=== PATIENT | male | born 1985 | race Caucasian/White ===

== ENCOUNTER 2017-09-09 14:51 | Emergency (ER) | payer SELFPAY ==
[~2017-09-09] VITALS: Ht 182.9 cm; Wt 109.1 kg
[~2017-09-09 14:51] MED LIST: PROM25SU8 PO
[2017-09-09 14:52] VITALS: BP 154/84; PULSE 105; RESP 16; TEMP 99.5; O2SAT 97
[2017-09-09] MEDS ORDERED: SODIUM CHLOR 0.9% 1000 ML INJ 1,000 ML IV SCH (14:57)
[2017-09-09] MEDS ORDERED: SODIUM CHLORIDE 0.9% FLUSH 10 ML FLUSH IV FLUSH PRN (15:00)
[2017-09-09 15:25] VITALS: BP 143/85; PULSE 91; RESP 18; O2SAT 94
--- NOTE | 2017-09-09 15:35 | PD ---
HPI Chief Complaint: Flank/Kidney Pain Time Seen by Provider: 14:57 Travel History International Travel<30 days: No Contact w/Intl Traveler<30days: No Traveled to known affect area: No History of Present Illness HPI Patient is a 32-year-old male who presents to emergency room with complaints of left-sided flank pain. Patient reports that he has history of kidney stones in the past, reports that his kidney stones have required surgery for stone removal. Patient reports that since last night, he has been having left sided flank pain. Reports that the flank pain does radiate to his left groin Reports that pain has been mild to moderate in nature but constant. Denies n/v/d with symptoms. Patient reports that he has been having urinary frequency as well as urgency. Denies discharge. patient with no fever/chills, no other complaints at this time. PFSH Past Medical History ADD: Yes Bipolar Disorder: Yes Cancer: No Cardiovascular Problems: No Diabetes: No Diminished Hearing: No Endocrine: No Genitourinary: No Immune Disorder: No Kidney Stones: Yes Musculoskeletal: No Neurologic: No Psychiatric: No Reproductive: No Respiratory: No Integumentary: Yes (LACERATION WITH SUTURES TO LEFT HAND.) Immunizations Current: Yes Influenza Vaccination: No Past Surgical History Genitourinary Surgery: Yes (KIDNEY STONE REMOVAL) Other Surgery: No Social History Alcohol Use: No (USED TO DRINK) Tobacco Use: No Substance Use: No Allergies-Medications (Allergen,Severity, Reaction): Coded Allergies: codeine (Unverified Allergy, Severe, Hives, 09/09/17) Reported Meds & Prescriptions Reported Meds & Active Scripts Active No Active Prescriptions or Reported Medications Review of Systems General / Constitutional: No: Fever, Chills Eyes: No: Visual changes HENT: No: Headaches Cardiovascular: No: Chest Pain or Discomfort Respiratory: No: Shortness of Breath Gastrointestinal: No: Abdominal Pain Genitourinary: Positive: Frequency, Flank Pain, No: Dysuria, Nocturia, Hematuria, Hesitancy Musculoskeletal: No: Pain Skin: No Rash Neurologic: No: Weakness Psychiatric: No: Depression Endocrine: No: Polydipsia Hematologic/Lymphatic: No: Easy Bruising Physical Exam Narrative GENERAL: moderate distress SKIN: Focused skin assessment warm/dry. HEAD: Atraumatic. Normocephalic. EYES: Pupils equal and round. No scleral icterus. No injection or drainage. ENT: No nasal bleeding or discharge. Mucous membranes pink and moist. NECK: Trachea midline. No JVD. CARDIOVASCULAR: Regular rate and rhythm. No murmur appreciated. RESPIRATORY: No accessory muscle use. Clear to auscultation. Breath sounds equal bilaterally. GASTROINTESTINAL: Abdomen soft, non-tender, nondistended. Hepatic and splenic margins not palpable. MUSCULOSKELETAL: No obvious deformities. No clubbing. No cyanosis. No edema. Patient with left sided flank pain on exam NEUROLOGICAL: Awake and alert. No obvious cranial nerve deficits. Motor grossly within normal limits. Normal speech. PSYCHIATRIC: Appropriate mood and affect; insight and judgment normal. Data Data Last Documented VS Vital Signs Date Time Temp Pulse Resp B/P (MAP) Pulse Ox O2 Delivery O2 Flow Rate FiO2 09/09/17 15:25 91 18 143/85 (104) 94 Room Air 09/09/17 14:52 99.5 Orders Orders Complete Blood Count With Diff (09/09/17 14:57) Comprehensive Metabolic Panel (09/09/17 14:57) Lipase (09/09/17 14:57) Prothrombin Time / Inr (Pt) (09/09/17 14:57) Act Partial Throm Time (Ptt) (09/09/17 14:57) Urinalysis - C+S If Indicated (09/09/17 14:57) Iv Access Insert/Monitor (09/09/17 14:57) Ecg Monitoring (09/09/17 14:57) Oximetry (09/09/17 14:57) NPO (09/09/17 14:57) Sodium Chlor 0.9% 1000 Ml Inj (Ns 1000 M (09/09/17 14:57) Sodium Chloride 0.9% Flush (Ns Flush) (09/09/17 15:00) Ct Abd/Pel W/O Iv Contrast (09/09/17 15:19) Morphine Inj (Morphine Inj) (09/09/17 15:45) Ondansetron Inj (Zofran Inj) (09/09/17 15:45) ^ Straight Catheter (09/09/17 16:15) Labs Laboratory Tests Test 09/09/17 15:20 White Blood Count 10.7 TH/MM3 Red Blood Count 5.26 MIL/MM3 Hemoglobin 16.4 GM/DL Hematocrit 46.9 % Mean Corpuscular Volume 89.2 FL Mean Corpuscular Hemoglobin 31.3 PG Mean Corpuscular Hemoglobin Concent 35.1 % Red Cell Distribution Width 13.1 % Platelet Count 226 TH/MM3 Mean Platelet Volume 8.9 FL Neutrophils (%) (Auto) 72.7 % Lymphocytes (%) (Auto) 16.4 % Monocytes (%) (Auto) 6.9 % Eosinophils (%) (Auto) 3.5 % Basophils (%) (Auto) 0.5 % Neutrophils # (Auto) 7.7 TH/MM3 Lymphocytes # (Auto) 1.8 TH/MM3 Monocytes # (Auto) 0.7 TH/MM3 Eosinophils # (Auto) 0.4 TH/MM3 Basophils # (Auto) 0.1 TH/MM3 CBC Comment DIFF FINAL Differential Comment Prothrombin Time 10.2 SEC Prothromb Time International Ratio 1.0 RATIO Activated Partial Thromboplast Time 27.0 SEC Blood Urea Nitrogen 14 MG/DL Creatinine 1.17 MG/DL Random Glucose 93 MG/DL Total Protein 7.5 GM/DL Albumin 3.8 GM/DL Calcium Level 9.2 MG/DL Alkaline Phosphatase 83 U/L Aspartate Amino Transf (AST/SGOT) 42 U/L Alanine Aminotransferase (ALT/SGPT) 52 U/L Total Bilirubin 0.4 MG/DL Sodium Level 138 MEQ/L Potassium Level 3.9 MEQ/L Chloride Level 104 MEQ/L Carbon Dioxide Level 28.1 MEQ/L Anion Gap 6 MEQ/L Estimat Glomerular Filtration Rate 73 ML/MIN Lipase 231 U/L MDM Medical Decision Making Medical Screen Exam Complete: Yes Emergency Medical Condition: Yes Medical Record Reviewed: Yes Interpretation(s) Vital Signs Date Time Temp Pulse Resp B/P (MAP) Pulse Ox O2 Delivery O2 Flow Rate FiO2 09/09/17 15:25 91 18 143/85 (104) 94 Room Air 09/09/17 15:08 18 09/09/17 14:52 99.5 105 16 154/84 (107) 97 Room Air Differential Diagnosis Kidney stones, cystitis, UTI, electrolyte abnormality Narrative Course During the course of the patients emergency department visit, the patients history, examination, and differential diagnosis were reviewed with the patient. The patient was placed on a rv detailer with oximetry and frequent blood pressure monitoring. The patient had a 20-gauge IV access obtained and blood work sent for analysis. The patient was initially provided IVF, IV morphine (patient has tolerated this in the past and does not have an allergy to this), IV zofran The patients laboratory studies were reviewed and remarkable for : CBC & BMP Diagram 09/09/17 15:20 Total Protein 7.5, Albumin 3.8, Calcium Level 9.2, Alkaline Phosphatase 83, Aspartate Amino Transf (AST/SGOT) 42 H, Alanine Aminotransferase (ALT/SGPT) 52, Total Bilirubin 0.4 Radiology studies were reviewed and remarkable for: Last Impressions Abdomen/Pelvis CT 09/09/17 8174 Signed Impressions: Service Date/Time: Saturday, September 09, 2017 15:39 - CONCLUSION: Numerous calcifications throughout the kidneys , left greater than right. No active stones identified. Otherwise unremarkable CT scan of the abdomen and pelvis. Mirza Meza MD Patient with numerous calcifications of the kidneys, left greater than right, cr 1.17 I reviewed all labs and all studies with patient in detail including all incidental findings. Plan to have patient follow up with urologist. Signs and symptoms of when to return to the emergency room was reviewed with patient detail. Diagnosis Primary Impression: Flank pain Additional Impression: Nephrolithiasis Referrals: Luis Miguel Cole MD Patient Instructions: Narcotic given in the ED, General Instructions Additional Instructions: Please provide patient with a copy of their lab work and studies at discharge* * Please follow up with your primary care doctor in 2-3 days Return to the ER if symptoms worsen or progress Return to the ER as needed Please follow-up with a urologist as soon as possible Scripts No Active Prescriptions or Reported Meds Disposition: 01 DISCHARGE HOME Condition: Stable Adele West DO Sep 09, 2017 15:35
[2017-09-09 15:43] LABS: AUTOMATED NEUTROPHIL # 7.7 TH/MM3 (1.8-7.7); BASOPHIL # 0.1 TH/MM3 (0-0.2); BASOPHIL % 0.5 % (0.0-2.0); EOSINOPHIL # 0.4 TH/MM3 (0-0.4); EOSINOPHIL % 3.5 % (0.0-4.0); HEMATOCRIT 46.9 % (39.0-51.0); HEMOGLOBIN 16.4 GM/DL (13.0-17.0); LYMPH % 16.4 % (9.0-44.0); LYMPHOCYTE # 1.8 TH/MM3 (1.0-4.8); MEAN CELL VOLUME 89.2 FL (80.0-100.0); MEAN CORPUSCULAR HEMOGLOBIN 31.3 PG (27.0-34.0); MEAN CORPUSCULAR HGB CONC 35.1 % (32.0-36.0); MEAN PLATELET VOLUME 8.9 FL (7.0-11.0); MONO % 6.9 % (0.0-8.0); MONOCYTE # 0.7 TH/MM3 (0-0.9); NEUT % 72.7 % (16.0-70.0); PLATELET COUNT 226 TH/MM3 (150-450); RED BLOOD COUNT 5.26 MIL/MM3 (4.50-5.90); RED CELL DISTRIBUTION WIDTH 13.1 % (11.6-17.2); WHITE BLOOD COUNT 10.7 TH/MM3 (4.0-11.0)
[2017-09-09] MEDS ORDERED: MORPHINE SULFATE 4 MG/ML INJ IV PUSH ONE (15:45)
[2017-09-09] MEDS ORDERED: ONDANSETRON HCL 4 MG/2 ML VIAL IVP ONE (15:45)
--- NOTE | 2017-09-09 15:51 | RADRPT ---
EXAM DATE/TIME: 09/09/2017 15:39 [facility] COMPARISON: No previous studies available for comparison. INDICATIONS : Left flank pain radiating to left testicle. ORAL CONTRAST: No oral contrast ingested. RADIATION DOSE: 8.50 CTDIvol (mGy) MEDICAL HISTORY : Renal calculi. SURGICAL HISTORY : None. ENCOUNTER: Initial ACUITY: 2 days PAIN SCALE: 3/10 LOCATION: Right flank TECHNIQUE: Volumetric scanning of the abdomen and pelvis was performed. Using automated exposure control and adjustment of the mA and/or kV according to patient size, radiation dose was kept as low as reasonably achievable to obtain optimal diagnostic quality images. DICOM format image data is av ailable electronically for review and comparison. FINDINGS: LOWER LUNGS: The visualized lower lungs are clear. LIVER: Homogeneous density without lesion. There is no dilation of the biliary tree. No calcifi ed gallstones. SPLEEN: Normal size without lesion. PANCREAS: Within normal limits. KIDNEYS: Innumerable stones left greater than right. Normal in size and shape. There is no mas s, or hydronephrosis. ADRENAL GLANDS: Within normal limits. VASCULAR: There is no aortic aneurysm. BOWEL/MESENTERY: The stomach, small bowel, and colon demonstrate no acute abnormality. There is no free intraperitoneal air or fluid. ABDOMINAL WALL: Within normal limits. RETROPERITONEUM: There is no lymphadenopathy. BLADDER: No wall thickening or mass. REPRODUCTIVE: Within normal limits. INGUINAL: There is no lymphadenopathy or hernia. MUSCULOSKELETAL: Within normal limits for patient age. CONCLUSION: Numerous calcifications throughout the kidneys , left greater than right. No active s tones identified. Otherwise unremarkable CT scan of the abdomen and pelvis. Mirza Meza MD on September 09, 2017 at 15:47 Board Certified Radiologist. This report was verified electronically.
[2017-09-09 15:54] LABS: PROTHROMBIN TIME - PATIENT 10.2 SEC (9.8-11.6)
[2017-09-09 16:06] LABS: ALBUMIN 3.8 GM/DL (3.4-5.0); ALKALINE PHOSPHATASE 83 U/L (45-117); ALT (GPT) 52 U/L (12-78); AST (GOT) 42 U/L (15-37); BICARBONATE 28.1 MEQ/L (21.0-32.0); BLOOD UREA NITROGEN 14 MG/DL (7-18); CALCIUM 9.2 MG/DL (8.5-10.1); CHLORIDE 104 MEQ/L (98-107); CREATININE 1.17 MG/DL (0.60-1.30); GLOMERULAR FILTRATION RATE 73 ML/MIN (>89); GLUCOSE,RANDOM 93 MG/DL (74-106); LIPASE 231 U/L (73-393); SODIUM (NA) 138 MEQ/L (136-145); TOTAL BILIRUBIN ADULT 0.4 MG/DL (0.2-1.0); TOTAL PROTEIN 7.5 GM/DL (6.4-8.2)
--- NOTE | 2017-09-09 16:58 | PD ---
Physical Exam Date Seen by Provider: Sep 09, 2017 Time Seen by Provider: 16:56 Narrative The patient is a 32-year-old male was initially evaluate by the previous physician, Dr. West. Please refer to the initial history, physical, diagnostic evaluation, and treatment modality plan. The patient was signed out at 5 PM with UA results pending. The patient apparently does have a history of kidney stones, had a CT of the abdomen and pelvis which revealed stones within the kidney, however, he did not appear to be passing a stone. UA was ordered to rule out pyelonephritis/, located UTI. Data Data Last Documented VS Vital Signs Date Time Temp Pulse Resp B/P (MAP) Pulse Ox O2 Delivery O2 Flow Rate FiO2 09/09/17 15:25 91 18 143/85 (104) 94 Room Air 09/09/17 14:52 99.5 Orders Orders Complete Blood Count With Diff (09/09/17 14:57) Comprehensive Metabolic Panel (09/09/17 14:57) Lipase (09/09/17 14:57) Prothrombin Time / Inr (Pt) (09/09/17 14:57) Act Partial Throm Time (Ptt) (09/09/17 14:57) Urinalysis - C+S If Indicated (09/09/17 14:57) Iv Access Insert/Monitor (09/09/17 14:57) Ecg Monitoring (09/09/17 14:57) Oximetry (09/09/17 14:57) NPO (09/09/17 14:57) Sodium Chlor 0.9% 1000 Ml Inj (Ns 1000 M (09/09/17 14:57) Sodium Chloride 0.9% Flush (Ns Flush) (09/09/17 15:00) Ct Abd/Pel W/O Iv Contrast (09/09/17 15:19) Morphine Inj (Morphine Inj) (09/09/17 15:45) Ondansetron Inj (Zofran Inj) (09/09/17 15:45) ^ Straight Catheter (09/09/17 16:15) Labs Laboratory Tests Test 09/09/17 15:20 09/09/17 16:42 White Blood Count 10.7 TH/MM3 Red Blood Count 5.26 MIL/MM3 Hemoglobin 16.4 GM/DL Hematocrit 46.9 % Mean Corpuscular Volume 89.2 FL Mean Corpuscular Hemoglobin 31.3 PG Mean Corpuscular Hemoglobin Concent 35.1 % Red Cell Distribution Width 13.1 % Platelet Count 226 TH/MM3 Mean Platelet Volume 8.9 FL Neutrophils (%) (Auto) 72.7 % Lymphocytes (%) (Auto) 16.4 % Monocytes (%) (Auto) 6.9 % Eosinophils (%) (Auto) 3.5 % Basophils (%) (Auto) 0.5 % Neutrophils # (Auto) 7.7 TH/MM3 Lymphocytes # (Auto) 1.8 TH/MM3 Monocytes # (Auto) 0.7 TH/MM3 Eosinophils # (Auto) 0.4 TH/MM3 Basophils # (Auto) 0.1 TH/MM3 CBC Comment DIFF FINAL Differential Comment Prothrombin Time 10.2 SEC Prothromb Time International Ratio 1.0 RATIO Activated Partial Thromboplast Time 27.0 SEC Blood Urea Nitrogen 14 MG/DL Creatinine 1.17 MG/DL Random Glucose 93 MG/DL Total Protein 7.5 GM/DL Albumin 3.8 GM/DL Calcium Level 9.2 MG/DL Alkaline Phosphatase 83 U/L Aspartate Amino Transf (AST/SGOT) 42 U/L Alanine Aminotransferase (ALT/SGPT) 52 U/L Total Bilirubin 0.4 MG/DL Sodium Level 138 MEQ/L Potassium Level 3.9 MEQ/L Chloride Level 104 MEQ/L Carbon Dioxide Level 28.1 MEQ/L Anion Gap 6 MEQ/L Estimat Glomerular Filtration Rate 73 ML/MIN Lipase 231 U/L Urine Color LIGHT-YELLOW Urine Turbidity HAZY Urine pH 7.0 Urine Specific [place] 1.012 Urine Protein NEG mg/dL Urine Glucose (UA) NEG mg/dL Urine Ketones NEG mg/dL Urine Occult Blood NEG Urine Nitrite NEG Urine Bilirubin NEG Urine Urobilinogen LESS THAN 2.0 MG/DL Urine Leukocyte Esterase NEG Urine WBC LESS THAN 1 /hpf Urine Amorphous Sediment RARE Urine Mucus FEW /lpf Microscopic Urinalysis Comment CULT NOT INDICATED MDM Medical Record Reviewed: Yes Supervised Visit with SAM: No Interpretation(s) Last Impressions Abdomen/Pelvis CT 09/09/17 0183 Signed Impressions: Service Date/Time: Saturday, September 09, 2017 15:39 - CONCLUSION: Numerous calcifications throughout the kidneys , left greater than right. No active stones identified. Otherwise unremarkable CT scan of the abdomen and pelvis. Mirza Meza MD Laboratory Tests Test 09/09/17 15:20 09/09/17 16:42 White Blood Count 10.7 TH/MM3 Red Blood Count 5.26 MIL/MM3 Hemoglobin 16.4 GM/DL Hematocrit 46.9 % Mean Corpuscular Volume 89.2 FL Mean Corpuscular Hemoglobin 31.3 PG Mean Corpuscular Hemoglobin Concent 35.1 % Red Cell Distribution Width 13.1 % Platelet Count 226 TH/MM3 Mean Platelet Volume 8.9 FL Neutrophils (%) (Auto) 72.7 % Lymphocytes (%) (Auto) 16.4 % Monocytes (%) (Auto) 6.9 % Eosinophils (%) (Auto) 3.5 % Basophils (%) (Auto) 0.5 % Neutrophils # (Auto) 7.7 TH/MM3 Lymphocytes # (Auto) 1.8 TH/MM3 Monocytes # (Auto) 0.7 TH/MM3 Eosinophils # (Auto) 0.4 TH/MM3 Basophils # (Auto) 0.1 TH/MM3 CBC Comment DIFF FINAL Differential Comment Prothrombin Time 10.2 SEC Prothromb Time International Ratio 1.0 RATIO Activated Partial Thromboplast Time 27.0 SEC Blood Urea Nitrogen 14 MG/DL Creatinine 1.17 MG/DL Random Glucose 93 MG/DL Total Protein 7.5 GM/DL Albumin 3.8 GM/DL Calcium Level 9.2 MG/DL Alkaline Phosphatase 83 U/L Aspartate Amino Transf (AST/SGOT) 42 U/L Alanine Aminotransferase (ALT/SGPT) 52 U/L Total Bilirubin 0.4 MG/DL Sodium Level 138 MEQ/L Potassium Level 3.9 MEQ/L Chloride Level 104 MEQ/L Carbon Dioxide Level 28.1 MEQ/L Anion Gap 6 MEQ/L Estimat Glomerular Filtration Rate 73 ML/MIN Lipase 231 U/L Urine Color LIGHT-YELLOW Urine Turbidity HAZY Urine pH 7.0 Urine Specific [place] 1.012 Urine Protein NEG mg/dL Urine Glucose (UA) NEG mg/dL Urine Ketones NEG mg/dL Urine Occult Blood NEG Urine Nitrite NEG Urine Bilirubin NEG Urine Urobilinogen LESS THAN 2.0 MG/DL Urine Leukocyte Esterase NEG Urine WBC LESS THAN 1 /hpf Urine Amorphous Sediment RARE Urine Mucus FEW /lpf Microscopic Urinalysis Comment CULT NOT INDICATED Differential Diagnosis Differential diagnosis includes nephrolithiasis, pyelonephritis, hydronephrosis , diverticulitis, epididymitis, testicular torsion, referred pain, shingles, neuralgia. Narrative Course Patient was initially evaluated by the previous physician, Dr. West. Please refer to the initial history, physical, diagnostic evaluation, and treatment modality plan. The patient was signed out of 5 PM with UA results pending. UA is unremarkable. Patient is medically clear to be evaluated outpatient. He will be provided a copy of his CT results and lab results at discharge. He will be placed on ibuprofen as needed. Diagnosis Primary Impression: Flank pain Additional Impression: Nephrolithiasis Referrals: Luis Miguel Cole MD Patient Instructions: General Instructions, Narcotic given in the ED Additional Instruction: Please provide patient with a copy of their lab work and studies at discharge* * Please follow up with your primary care doctor in 2-3 days Return to the ER if symptoms worsen or progress Return to the ER as needed Please follow-up with a urologist as soon as possible Med/Other Pt SpecificInfo: Prescription(s) given Scripts Ibuprofen (Ibuprofen) 600 Mg Tab 600 MG PO Q6H Y for Pain/Inflammation, #20 TAB 0 Refills Prov: Hal Shaffer MD 09/09/17 Disposition: 01 DISCHARGE HOME Condition: Stable Hal Shaffer MD Sep 09, 2017 16:58
[2017-09-09 17:15] LABS: AMORPHOUS SEDIMENT, URINE RARE; BILIRUBIN, URINE NEG (NEG); BLOOD, URINE NEG (NEG); GLUCOSE,URINE NEG (NEG); KETONE, URINE NEG (NEG); MUCUS URINE FEW /lpf (OCC); NITRITE,URINE NEG (NEG); URINE COLOR LIGHT-YELLOW (YELLW/STRAW); URINE LEUKOCYTE ESTERASE NEG (NEG)
[2017-09-09] MEDS ORDERED: IBUP-232 PO (17:42)
[2017-09-09 17:45] VITALS: BP 150/102
== END 2017-09-09 17:54 | disposition home or self-care (01) ==
LOC: NEPD 14:51
DX: N20.0 Calculus of kidney (principal)
CPT/HCPCS: 74176; 80053; 81001; 83690; 85025; 85610; 85730; 96360; 99285; J7030

== ENCOUNTER 2017-11-17 07:08 | Emergency (ER) | payer SELFPAY ==
[~2017-11-17] VITALS: Ht 182.9 cm; Wt 100.0 kg
[~2017-11-17 07:08] MED LIST changes: +IBUP-232 PO; -PROM25SU8 PO
[2017-11-17 07:15] VITALS: BP 144/83; PULSE 87; RESP 16; TEMP 98.7; O2SAT 98
[2017-11-17] MEDS ORDERED: AUGM875T3 PO (07:27)
--- NOTE | 2017-11-17 07:33 | PD ---
HPI Chief Complaint: Facial Pain or Swelling Time Seen by Provider: 07:24 Travel History International Travel<30 days: No Contact w/Intl Traveler<30days: No Traveled to known affect area: No History of Present Illness HPI 32 year-old male presents to the emergency room for evaluation of left sided facial swelling that started 2 days ago. States the swelling has been worsening , especially this morning when he woke up. Patient reports pain above the left upper teeth in the sinuses. States he has had a toothache in the past and this does not feel the same. Pain is moderate, worse when he leans forward or pushes on the sinuses. He took ibuprofen this morning. He denies any sinus drainage, fever, chills, nausea, vomiting, congestion, cough, or dental drainage. Denies any sick contacts. Denies any chronic medical conditions or daily medications. PFSH Past Medical History ADD: Yes Bipolar Disorder: Yes Cancer: No Cardiovascular Problems: No Diabetes: No Diminished Hearing: No Endocrine: No Genitourinary: No Immune Disorder: No Kidney Stones: Yes Musculoskeletal: No Neurologic: No Psychiatric: No Reproductive: No Respiratory: No Integumentary: Yes (LACERATION WITH SUTURES TO LEFT HAND.) Immunizations Current: Yes Influenza Vaccination: No Past Surgical History Genitourinary Surgery: Yes (KIDNEY STONE REMOVAL) Other Surgery: No Social History Alcohol Use: No (USED TO DRINK) Tobacco Use: No Substance Use: No Allergies-Medications (Allergen,Severity, Reaction): Coded Allergies: codeine (Unverified Allergy, Severe, Hives, 11/17/17) Reported Meds & Prescriptions Reported Meds & Active Scripts Active Augmentin (Amoxicillin-Clavulanate) 875-125 Mg Tab 1 Tab PO BID 10 Days Ibuprofen 600 Mg Tab 600 Mg PO Q6H PRN Review of Systems Except as stated in HPI: all other systems reviewed are Neg Physical Exam Narrative GENERAL: Well-nourished, well-developed male in no acute distress. Afebrile. Ambulatory. SKIN: Focused skin assessment warm/dry. HEAD: Normocephalic. Tenderness to palpation of the left maxillary sinus. EYES: No scleral icterus. No injection or drainage. NECK: Supple, trachea midline. No JVD or lymphadenopathy. DENTAL: Mild decay throughout. No loose or chipped teeth. No malocclusion. There is some mild erythema surrounding tooth #14. No obvious abscess. No drainage. CARDIOVASCULAR: Regular rate and rhythm without murmurs, gallops, or rubs. RESPIRATORY: Breath sounds equal bilaterally. No accessory muscle use. Data Data Last Documented VS Vital Signs Date Time Temp Pulse Resp B/P (MAP) Pulse Ox O2 Delivery O2 Flow Rate FiO2 11/17/17 07:26 16 11/17/17 07:15 98.7 87 144/83 (103) 98 MDM Medical Decision Making Medical Screen Exam Complete: Yes Emergency Medical Condition: Yes Medical Record Reviewed: Yes Differential Diagnosis Dental infection, sinusitis, abscess, URI Narrative Course 32-year-old male presents to the emergency room for evaluation of left-sided facial pain and swelling for the past 2 days. No associated URI symptoms. Denies any sinus or dental drainage. No fevers. Patient is well-appearing. Vital signs stable. There is mild edema of the left cheek and tenderness to palpation of the left maxillary sinus. There is some erythema surrounding tooth #14. Suspect dental infection but patient will be treated empirically for sinusitis as well. Discharged with Augmentin and told to follow-up with a dentist or return for worsening symptoms. He understands and agrees to plan. Diagnosis Primary Impression: Dental abscess Referrals: Primary Care Physician Additional Instructions: Augmentin as directed, until gone. Follow up with primary care physician or dentist. Return for worsening symptoms. Med/Other Pt SpecificInfo: Prescription(s) given Scripts Amoxicillin-Clavulanate (Augmentin) 875-125 Mg Tab 1 TAB PO BID for Infection for 10 Days, #20 TAB 0 Refills Prov: Jsoe G Fitch MD 11/17/17 Disposition: 01 DISCHARGE HOME Condition: Stable Eveline Chakraborty Nov 17, 2017 07:33
== END 2017-11-17 07:46 | disposition home or self-care (01) ==
LOC: NEPD 07:08
DX: K04.7 Periapical abscess without sinus (principal)
CPT/HCPCS: 99283

== ENCOUNTER 2018-01-26 04:51 | Emergency (ER) | payer SELFPAY ==
[~2018-01-26] VITALS: Ht 182.9 cm; Wt 104.5 kg
[~2018-01-26 04:51] MED LIST changes: +AUGM875T3 PO
[2018-01-26 04:55] VITALS: BP 132/90; PULSE 77; RESP 14; TEMP 98.2; O2SAT 99
--- NOTE | 2018-01-26 05:16 | PD ---
HPI Chief Complaint: Injury Time Seen by Provider: 05:03 Travel History International Travel<30 days: No Contact w/Intl Traveler<30days: No Traveled to known affect area: No History of Present Illness HPI Patient is a 32-year-old male presented to the emerge department for evaluation of hand pain. Patient states the pain has been ongoing for a while. It occurs in both of his hands. It is worse after he works all day. He states aching and sore. Occasionally the pain radiates up his arm. He was told previously that he had carpal tunnel syndrome. He denies any injury or trauma. Symptoms are chronic in nature. Patient takes Aleve and ibuprofen as needed for pain. He reports his pain is a 6 out of 10. He denies any numbness or weakness in his extremities. [facility] Past Medical History ADD: Yes Bipolar Disorder: Yes Cancer: No Cardiovascular Problems: No Diabetes: No Diminished Hearing: No Endocrine: No Genitourinary: No Immune Disorder: No Kidney Stones: Yes Musculoskeletal: No Neurologic: No Psychiatric: No Reproductive: No Respiratory: No Integumentary: Yes (LACERATION WITH SUTURES TO LEFT HAND.) Immunizations Current: Yes Tetanus Vaccination: < 5 Years Influenza Vaccination: No Past Surgical History Genitourinary Surgery: Yes (KIDNEY STONE REMOVAL) Other Surgery: No Social History Alcohol Use: No (USED TO DRINK) Tobacco Use: No Substance Use: No Allergies-Medications (Allergen,Severity, Reaction): Coded Allergies: codeine (Unverified Allergy, Severe, Hives, 11/17/17) Reported Meds & Prescriptions Reported Meds & Active Scripts Active No Active Prescriptions or Reported Medications Review of Systems Except as stated in HPI: all other systems reviewed are Neg Musculoskeletal: Positive: Myalgias, Arthralgias Physical Exam Narrative GENERAL: Well-developed, well-nourished, alert male. Presenting in no acute distress. SKIN: Warm and dry. HEAD: Normocephalic. EYES: No scleral icterus. No injection or drainage. NECK: Supple, trachea midline. No JVD or lymphadenopathy. CARDIOVASCULAR: Regular rate and rhythm without murmurs, gallops, or rubs. RESPIRATORY: Breath sounds equal bilaterally. No accessory muscle use. GASTROINTESTINAL: Abdomen soft, non-tender, nondistended. MUSCULOSKELETAL: No cyanosis, or edema. No obvious deformities noted. 2+ radial pulses bilaterally. Brisk less than 3 second capillary refill. Full range of motion with flexion and extension of fingers, wrists. BACK: Nontender without obvious deformity. No CVA tenderness. Data Data Last Documented VS Vital Signs Date Time Temp Pulse Resp B/P (MAP) Pulse Ox O2 Delivery O2 Flow Rate FiO2 01/26/18 04:55 98.2 77 14 132/90 (104) 99 [facility] Medical Decision Making Medical Screen Exam Complete: Yes Emergency Medical Condition: No Interpretation(s) Vital Signs Date Time Temp Pulse Resp B/P (MAP) Pulse Ox O2 Delivery O2 Flow Rate FiO2 01/26/18 04:55 98.2 77 14 132/90 (104) 99 Differential Diagnosis Arthritis versus carpal tunnel syndrome versus myalgias versus other Narrative Course Patient is a 32-year-old male presenting to the emergency department for evaluation of bilateral hand pain. Exam is unremarkable. He reports a history of carpal tunnel however this appears more consistent with arthritis. He was encouraged to take [id number] ibuprofen or acetaminophen as needed as directed for pain. He is encouraged to follow-up with a primary doctor for further evaluation and management. He can return to emergency department for any new or worsening symptoms or injuries. A medical screening exam was performed: At the time of evaluation the presenting medical condition was determined not to be of an emergent nature. The patient was given the option of receiving additional care, but declined. Patient was given options for additional community resources from which to obtain care. The Patient Has Been advised to seek medical attention for their presenting complaint. The patient has been advised to return to the ER at any time if an emergent condition develops. Diagnosis Primary Impression: Encounter for medical screening examination Scripts No Active Prescriptions or Reported Meds Disposition: 07 EDGO-ED USE ONLY Mary Ellen Vargas January 26, 2018 05:16
== END 2018-01-26 05:07 | disposition left against medical advice (07) ==
LOC: NEPD 04:51
DX: M79.642 Pain in left hand (principal); M79.641 Pain in right hand; Z88.5 Allergy status to narcotic agent
CPT/HCPCS: 99281

== ENCOUNTER 2018-05-07 05:44 | Inpatient (IN) ==
[2018-05-07] MEDS ORDERED: Sodium Chlor 0.9% Inj 500 ML IV.SIG ONE (06:27)
[2018-05-07] MEDS ORDERED: Sod Chloride 0.9% Inj 1,000 ML IV.SIG ONE ×3 (06:27→08:38)
--- NOTE | 2018-05-07 06:53 | XR ---
EXAM DATE: 05/07/2018 6:47 AM EDT AGE/SEX: 33 years / Male INDICATIONS: Heat exposure causing nausea and vomiting. CLINICAL DATA: This is the patient's initial encounter. Patient reports that signs and symptoms have been present for 1 day and indicates a pain score of 0/10. MEDICAL/SURGICAL HISTORY: Renal calculi. None. COMPARISON: No prior exams available for comparison. FINDINGS: The abdominal bowel gas pattern is normal. There is an area of calcification measuring up to 1.6 cm projecting over the inferior aspect of the left kidney.. The osseous structures are unremarkable. CONCLUSION: Suspected left renal stones. Electronically signed by: Ruben Trejo MD 05/07/2018 6:52 AM EDT
[2018-05-07 06:59] LABS: Hematocrit 55.6 % (39.0-51.0); Hemoglobin 19.7 gm/dL (13.0-17.0); Mean Corpuscular HGB Conc 35.4 % (32.0-36.0); Mean Corpuscular Hemoglobin 31.5 pg (27.0-34.0); Mean Corpuscular Volume 88.8 fL (80.0-100.0); Mean Platelet Volume 8.8 fL (7.0-11.0); Platelet Count 356 th/mm3 (150-450); Red Blood Count 6.27 mil/mm3 (4.50-5.90); Red Cell Distribution Width 13.7 % (11.6-17.2); White Blood Count 22.8 th/mm3 (4.0-11.0)
[2018-05-07 07:04] LABS: Alanine Aminotransferase 49 U/L (12-78); Albumin 5.1 g/dL (3.4-5.0); Anion Gap 18 meq/L (5-15); Aspartate Aminotransferase 25 U/L (15-37); Blood Urea Nitrogen 36 mg/dL (7-18); Calcium 10.2 mg/dL (8.5-10.1); Carbon Dioxide 26.4 meq/L (21.0-32.0); Chloride 92 meq/L (98-107); Glomerular Filtration Rate 11 mL/min (>89); Glucose,Random 124 mg/dL (74-106); Lipase 88 U/L (73-393); Potassium 4.3 meq/L (3.5-5.1); Sodium 136 meq/L (136-145)
[2018-05-07 07:07] LABS: Alkaline Phosphatase 103 U/L (45-117); Creatine Kinase 489 U/L (39-308); Total Protein 10.7 g/dL (6.4-8.2)
[2018-05-07 07:22] LABS: CKMB Percent 1.4 % (0.0-4.0)
--- NOTE | 2018-05-07 07:23 | ED ---
HPI General Chief Complaint: Abdominal Pain Stated Complaint: Medical Clearance Time Seen by Provider: 05/07/18 06:21 Source: patient Mode of arrival: ambulatory Limitations: no limitations History of Present Illness HPI narrative: The patient is 33 years old. He works with trees. Yesterday was over 90 outside and he felt somewhat tired while working. Overnight he began vomiting repeatedly. Nausea accompanied the patient overnight and into today as well. He reports he stopped sweating at one point yesterday. Patient also complains of headache, generalized, gradual onset. No fever. No loss of consciousness. Patient believes symptoms are due to strenuous physical labor outdoors. MD complaint: abdominal pain Onset (ago): day(s) (1) Pain Consistency: constant Location: diffuse Related Data Allergies Allergy/AdvReac Type Severity Reaction Status Date / Time codeine Allergy Severe Hives Verified 05/07/18 06:29 Review of Systems ROS: all other systems reviewed are negative Constitutional Denies fever(s) PMFSH Medical History Medical History Patient denies medical problems (Acute) Social History Social History Substance History: Active Abuse Second Hand Smoke Exposure: Yes Smoking Status: Current every day smoker Tobacco Type: Cigarettes How Often Do You Have a Drink Containing Alcohol: Monthly or less Recent Travel in [facility] within the Last 8 Weeks: No Recent Out of Country Travel within the Last 8 Weeks: No Immunization History Tetanus Immunization: Unsure Hx Influenza Vaccine This Season: Yes Exam Narrative Exam Narrative: GENERAL: 33-year-old male resting comfortably obvious distress SKIN: Focused skin assessment warm/dry. HEAD: Atraumatic. Normocephalic. EYES: Pupils equal and round. No scleral icterus. No injection or drainage. ENT: No nasal bleeding or discharge. Mucous membranes pink and moist. NECK: Trachea midline. No JVD. CARDIOVASCULAR: Tachycardia to about 100. Regular rhythm. RESPIRATORY: No accessory muscle use. Clear to auscultation. Breath sounds equal bilaterally. GASTROINTESTINAL: Abdomen soft, non-tender, nondistended. Hepatic and splenic margins not palpable. MUSCULOSKELETAL: No obvious deformities. No clubbing. No cyanosis. No edema. NEUROLOGICAL: Awake and alert. No obvious cranial nerve deficits. Motor grossly within normal limits. Normal speech. PSYCHIATRIC: Appropriate mood and affect; insight and judgment normal. Course Reevaluation(s) Reevaluation #1: Case discussed with outgoing physician. Patient assessed and found to be resting comfortably. Exam benign Time: 07:10 Reevaluation #2: Patient is in renal failure. Necessity for admission discussed with patient who is amenable to plan. Call placed to the admitting service which will be either [facility] or family medicine residents. Time: 07:28 Initial Documented Vital Signs Temperature 97.7 F 05/07/18 05:47 Pulse Rate 108 H 05/07/18 05:47 Respiratory Rate 18 05/07/18 05:47 Blood Pressure 149/84 H 05/07/18 05:47 Pulse Oximetry 97 05/07/18 05:47 Last Documented Vital Signs Temperature 97.7 F 05/07/18 05:47 Pulse Rate 109 H 05/07/18 06:21 Respiratory Rate 20 05/07/18 06:21 Blood Pressure 121/73 05/07/18 06:21 Pulse Oximetry 96 05/07/18 06:21 Medical Decision Making MDM Narrative Medical decision making narrative: Patient is in renal failure. IV fluid bolus initiated. Patient will be admitted. No hyperkalemia. Medical Screen Exam Complete: Yes Emergency Medical Condition: Yes Lab Data Lab results reviewed: Yes I reviewed the patient's lab results. Lab results narrative: Creatinine kinase 49 Lipase normal Patient is in renal failure Result diagrams: 05/07/18 06:35 05/07/18 06:35 Lab Results 05/07/18 05/07/18 Range/Units 06:35 06:35 WBC 22.8 H (4.0-11.0) th/mm3 RBC 6.27 H (4.50-5.90) mil/mm3 Hgb 19.7 H (13.0-17.0) gm/dL Hct 55.6 H (39.0-51.0) % MCV 88.8 (80.0-100.0) fL MCH 31.5 (27.0-34.0) pg MCHC 35.4 (32.0-36.0) % RDW 13.7 (11.6-17.2) % Plt Count 356 (150-450) th/mm3 MPV 8.8 (7.0-11.0) fL Prelim Diff (Auto) Manual diff required Differential Comment . Sodium 136 (136-145) meq/L Potassium 4.3 (3.5-5.1) meq/L Chloride 92 L (98-107) meq/L Carbon Dioxide 26.4 (21.0-32.0) meq/L Anion Gap 18 H (5-15) meq/L BUN 36 H (7-18) mg/dL Creatinine 5.76 H (0.60-1.30) mg/dL Estimated GFR 11 L (>89) mL/min Random Glucose 124 H (74-106) mg/dL Calcium 10.2 H (8.5-10.1) mg/dL Total Bilirubin 0.8 (0.2-1.0) mg/dL AST 25 (15-37) U/L ALT 49 (12-78) U/L Alkaline Phosphatase 103 (45-117) U/L Total Creatine Kinase 489 H (39-308) U/L Total Protein 10.7 H (6.4-8.2) g/dL Albumin 5.1 H (3.4-5.0) g/dL Lipase 88 (73-393) U/L Imaging Data Radiologist's impression: Abdomen X-Ray 05/07/18 06:28 CONCLUSION: Suspected left renal stones. Discharge Plan Discharge Disposition Patient Disposition: 30 Still Patient Physicians Team ED Provider: Rom Espinosa Primary Care Provider: UNKNOWN, Discharge Interventions Interventions: Vital Signs Last Done: 05/07/18 06:21 Status ED Status: With Doctor
[2018-05-07] MEDS ORDERED: Acetaminophen 500 MG Tablet PO ONE (07:25)
[2018-05-07 07:50] LABS: Lymphocytes 6 % (9-44); Monocytes 8 % (0-8)
[2018-05-07 07:51] LABS: Platelet Estimate Normal (Normal); Platelet Morphology Normal (Normal)
[2018-05-07 09:50] LABS: Bacteria,Urine Many /hpf; Bilirubin,Urine Negative (Negative); Clarity,Urine Turbid (Clear); Color,Urine Amber (Yellw/Straw); Glucose,Urine (UA) Negative (Negative); Hyaline Casts,Urine 15 /lpf (0-3); Leukocyte Esterase,Urine Small (Negative); Mucus,Urine Many /lpf (Occasional); Nitrite,Urine Negative (Negative); Specific Gravity,Urine 1.019 (1.002-1.035); Squamous Epithelial Cell,Urine 2 /hpf (0-5)
--- NOTE | 2018-05-07 10:09 | P.HP ---
History of Present Illness Primary Care Physician: UNKNOWN History of Present Illness: 33-year-old white male being admitted for acute renal failure Patient was in his usual state of health until yesterday when he began experiencing some nausea vomiting which self resolved. Then this morning he woke up with muscle cramps throughout his extremities with fatigue and decided come to emergency department. 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 Reports he has been sweating normally on a daily basis, he had some emesis yesterday which was nonbloody. Denies any diarrhea fever chills. Denies having any episodes of confusion or headaches or visual disturbances. Reports he is still able to make urine. Says he has had "heat strokes" in the past but denies ever being hospitalized for such. Inpatient Certification: I certify that the inpatient services were ordered in accordance with Medicare regulations governing the order. This includes certification that hospital inpatient services are reasonable and necessary and in the case of services not specified as inpatient-only under 42 CFR 419.22(n), that they are appropriately provided as inpatient services in accordance to with the 2-midnight benchmark under 43 CFR 412.3(e) Estimated Total Length of Stay (Days): 3 Plans for Post Hospital Care: Home Review of Systems All other systems reviewed negative except as stated in HPI PMFSH - History History Provided By: Patient - Medical History Medical History: Medical History (Last Updated 05/07/18 @ 10:06 by Roger Adler MD) Kidney stones - Family History Family History: Family History (Last Updated 05/07/18 @ 10:06 by Roger Adler MD) Other Heart attack - Tobacco History Second Hand Smoke Exposure: Yes Tobacco Use In Past 30 Days: Yes Smoking Status: Current every day smoker Tobacco Type: Cigarettes - Alcohol History How Often Do You Have a Drink Containing Alcohol: Monthly or less - Substance Use History Substance History: Active Abuse - Travel History Recent Travel in the [place] Within the Last 8 Weeks: No Recent Travel Out of the Country Within the Last 8 Weeks: No - Immunization History Tetanus Immunization: Unsure Hx Influenza Vaccine This Season: Yes Medications and Allergies Active Medications: Active Medications Sodium Chloride (Ns Inj) 1,000 mls @ 125 mls/hr IV.CONT .Q8H PARKER Sodium Chloride (Ns Flush) 2 ml IV.FLUSH BID PARKER Sodium Chloride (Ns Flush) 2 ml IV.FLUSH PRN PRN PRN Reason: FLUSH AFTER USING IV ACCESS Allergies Allergy/AdvReac Type Severity Reaction Status Date / Time codeine Allergy Severe Hives Verified 05/07/18 06:29 Home Medications Medication Instructions Recorded Confirmed Type No Known Home Medications 05/07/18 05/07/18 History Exam Vital signs: Vital Signs 05/07/18 05:47 05/07/18 06:21 05/07/18 07:00 Temperature 97.7 F Pulse Rate 108 H 109 H 96 H Respiratory Rate 18 20 18 Blood Pressure 149/84 H 121/73 114/62 Pulse Oximetry 97 96 98 Intake & Output 05/06/18 05/07/18 05/07/18 18:59 06:59 18:59 Intake Total 1500 / 1500 Balance 1500 / 1500 Weight 99.79 kg Intake: IV 1500 / 1500 NS Inj 1,000 ML @ Wide Open IV. 1000 / 1000 SIG BOLUS ONE Rx#:[id number] NS Inj 500 ML @ Wide Open IV. 500 / 500 SIG BOLUS ONE Rx#:[id number] Narrative: VS: afebrile GENERAL: Middle-aged white male, lying in bed, awake, alert, no acute distress SKIN: Appears to have been sunburned over his face and arms EYES: Pupils equal and round. No scleral icterus. No injection or drainage. ENT: No nasal bleeding or discharge. Mucous membranes pink and moist. CARDIOVASCULAR: Regular rate and rhythm. no murmurs RESPIRATORY: No accessory muscle use. Clear to auscultation. Breath sounds equal bilaterally. GASTROINTESTINAL: Abdomen soft, non-tender, nondistended. Extremities: No clubbing, cyanosis, or edema. No obvious deformities. MUSCULOSKELETAL: grossly intact ROM with 5/5 strength in upper and lower extremities proximally; adequate muscle bulk and tone for age and habitus NEUROLOGICAL: Awake and alert. No obvious cranial nerve deficits. No facial droop nor slurred speech noted. PSYCHIATRIC: Appropriate mood and affect; insight and judgment normal. Results - Labs CBC & Chem 7: 05/07/18 06:35 05/07/18 06:35 Labs: Laboratory Results - last 24 hr 05/07/18 05/07/18 05/07/18 06:35 06:35 09:25 WBC 22.8 H RBC 6.27 H Hgb 19.7 H Hct 55.6 H MCV 88.8 MCH 31.5 MCHC 35.4 RDW 13.7 Plt Count 356 MPV 8.8 Prelim Diff (Auto) Manual diff required WBC Differential Manual diff final Seg Neuts % (Manual) 85 H Lymphocytes % (Manual) 6 L Monocytes % (Manual) 8 Basophils % (Manual) 1 Abs Neuts (Manual) 19.4 H Differential Comment . Platelet Estimate Normal Platelet Morphology Normal Sodium 136 Potassium 4.3 Chloride 92 L Carbon Dioxide 26.4 Anion Gap 18 H BUN 36 H Creatinine 5.76 H Estimated GFR 11 L Random Glucose 124 H Calcium 10.2 H Total Bilirubin 0.8 AST 25 ALT 49 Alkaline Phosphatase 103 Total Creatine Kinase 489 H CK-MB (CK-2) 7.0 H CK-MB (CK-2) % 1.4 Total Protein 10.7 H Albumin 5.1 H Lipase 88 Urine Color [place] Urine Clarity Turbid H Urine pH 5.0 Ur Specific [place] 1.019 Urine Protein 500 or greater Urine Glucose (UA) Negative Urine Ketones Trace Urine Occult Blood Large H Urine Nitrate Negative Urine Bilirubin Negative Urine Urobilinogen Less than 2 Ur Leukocyte Esterase Small H Urine RBC Urine WBC 60 H Ur Squamous Epith Cells 2 Urine Bacteria Many H Hyaline Casts 15 Urine Mucus Many H - Imaging Impressions Abdomen X-Ray 05/07/18 06:28 CONCLUSION: Suspected left renal stones. Caprini VTE Risk Assessment Caprini VTE Risk Assessment: No/Low Risk (score <= 1) Caprini Risk Assessment Model: Point Value = 1 Point Value = 2 Point Value = 3 Point Value = 5 Age 41-60 Minor surgery BMI > 25 kg/m2 Swollen legs Varicose veins or History of unexplained or recurrent spontaneous Oral contraceptives or hormone replacement Sepsis (< 1 month) Serious lung disease, including pneumonia (< 1 month) Abnormal pulmonary function Acute myocardial infarction Congestive heart failure (< 1 month) History of inflammatory bowel disease Medical patient at bed rest Age 61-74 Arthroscopic surgery Major open surgery (> 45 min) Laparoscopic surgery (> 45 min) Malignancy Confined to bed (> 72 hours) Immobilizing plaster cast Central venous access Age >= 75 History of VTE Family history of VTE Factor V Leiden Prothrombin [id number] Lupus anticoagulant Anticardiolipin antibodies Elevated serum homocysteine Heparin-induced thrombocytopenia Other congenital or acquired thrombophilia Stroke (< 1 month) Elective arthroplasty Hip, pelvis, or leg fracture Acute spinal cord injury (< 1 month) Prophylaxis Regimen: Total Risk Factor Score Risk Level Prophylaxis Regimen 0-1 Low Early ambulation 2 Moderate Order ONE of the following: *Sequential Compression Device (SCD) *Heparin 5000 units SQ BID 3-4 Higher Order ONE of the following medications: *Heparin 5000 units SQ TID *Enoxaparin/Lovenox 40 mg SQ daily (WT < 150 kg, CrCl > 30 mL/min) *Enoxaparin/Lovenox 30 mg SQ daily (WT < 150 kg, CrCl > 10-29 mL/min) *Enoxaparin/Lovenox 30 mg SQ BID (WT < 150 kg, CrCl > 30 mL/min) AND/OR *Sequential Compression Device (SCD) 5 or more Highest Order ONE of the following medications: *Heparin 5000 units SQ TID (Preferred with Epidurals) *Enoxaparin/Lovenox 40 mg SQ daily (WT < 150 kg, CrCl > 30 mL/min) *Enoxaparin/Lovenox 30 mg SQ daily (WT < 150 kg, CrCl > 10-29 mL/min) *Enoxaparin/Lovenox 30 mg SQ BID (WT < 150 kg, CrCl > 30 mL/min) AND *Sequential Compression Device (SCD) Assessment and Plan - Plan 33 -year-old white male being admitted for acute renal failure secondary to dehydration Acute renal failure Dehydration mild rhabdomyolysis -Status post 3 L of normal saline boluses, continue aggressive hydration, recheck renal function frequently Place on telemetry, starting neuro checks w/ VS to ensure the patient does not deteriorate into any jose heat exhaustion and/or heat stroke -Consult nephrology if renal function does not improve -Urine drug screen Leukocytosis - likely stress induced, trend
[2018-05-07] MEDS: Sod Chloride 0.9% Inj 1,000 ML IV.CONT SCH ×2 (12:25→18:31)
[2018-05-07 13:17] LABS: Amphetamine Screen,Urine Pos (Neg); Barbiturate Screen,Urine Neg (Neg); Cannabinoid Screen,Urine Neg (Neg); Cocaine Screen,Urine Pos (Neg)
[2018-05-07 13:33] LABS: Opiate Screen,Urine Neg (Neg)
[2018-05-07 15:32] LABS: Calcium 7.5 mg/dL (8.5-10.1); Carbon Dioxide 23.3 meq/L (21.0-32.0); Potassium 3.3 meq/L (3.5-5.1)
[2018-05-08 01:07] VITALS: RESP 16
[2018-05-08] MEDS: Sod Chloride 0.9% Inj 1,000 ML IV.CONT SCH ×2 (05:38→09:00)
[2018-05-08 06:50] LABS: Baso % (Auto) 0.4 % (0.0-2.0); Eos # (Auto) 0.1 th/mm3 (0.0-0.4); Eos % (Auto) 1.7 % (0.0-4.0); Hemoglobin 14.1 gm/dL (13.0-17.0); Lymph # (Auto) 1.7 th/mm3 (1.0-4.8); Lymph % (Auto) 20.1 % (9.0-44.0); Mean Corpuscular HGB Conc 34.3 % (32.0-36.0); Mean Corpuscular Hemoglobin 31.5 pg (27.0-34.0); Mean Corpuscular Volume 91.8 fL (80.0-100.0); Mean Platelet Volume 8.5 fL (7.0-11.0); Mono # (Auto) 0.7 th/mm3 (0.0-0.9); Mono % (Auto) 7.9 % (0.0-8.0); Neut # (Auto) 5.9 th/mm3 (1.8-7.7); Neut % (Auto) 69.9 % (16.0-70.0); Platelet Count 216 th/mm3 (150-450); Red Blood Count 4.47 mil/mm3 (4.50-5.90); Red Cell Distribution Width 13.4 % (11.6-17.2); White Blood Count 8.4 th/mm3 (4.0-11.0)
[2018-05-08 07:17] LABS: Calcium 7.7 mg/dL (8.5-10.1); Carbon Dioxide 23.5 meq/L (21.0-32.0); Potassium 3.8 meq/L (3.5-5.1)
--- NOTE | 2018-05-08 09:58 | P.PNIM ---
Subjective Interval history: The patient stated that he felt a lot better and wanted to go home. He said that he was drinking plenty of fluids and no longer nauseous. He denies any dysuria. He requested a note for work. Discussed with nursing. Physical Exam Vital signs: Vital Signs 05/07/18 12:13 05/07/18 12:26 05/07/18 12:30 Temperature Pulse Rate 99 H 90 94 H Respiratory Rate 20 16 15 Blood Pressure 119/63 122/69 122/69 Pulse Oximetry 97 98 05/07/18 13:51 05/07/18 16:00 05/07/18 20:00 Temperature 97.5 F L 97.0 F L 97.1 F L Pulse Rate 89 97 H 89 Respiratory Rate 18 18 15 Blood Pressure 123/69 122/58 L 108/59 L Pulse Oximetry 99 98 99 05/08/18 00:00 05/08/18 04:00 05/08/18 08:00 Temperature 97.6 F 97.6 F 98.1 F Pulse Rate 88 97 H 88 Respiratory Rate 16 16 16 Blood Pressure 116/58 L 117/73 125/63 Pulse Oximetry 98 97 96 Intake & Output 05/07/18 05/08/18 05/08/18 18:59 06:59 18:59 Intake Total 2740 / 2740 1000 / 1000 1000 / 1000 Balance 2740 / 2740 1000 / 1000 1000 / 1000 Weight 99.7 kg 99.9 kg Intake: IV 2500 / 2500 1000 / 1000 1000 / 1000 NS Inj 1,000 ML @ 125 mls/hr IV 1000 / 1000 1000 / 1000 1000 / 1000 .CONT .Q8H PARKER Rx#:[id number] NS Inj 1,000 ML @ Wide Open IV. 1000 / 1000 SIG BOLUS ONE Rx#:[id number] NS Inj 500 ML @ Wide Open IV. 500 / 500 SIG BOLUS ONE Rx#:[id number] Oral 240 / 240 Other: # Voids 2 6 Weight On Admission 99.79 kg Narrative: GENERAL: No acute distress SKIN: Warm and dry EYES: Pupils equal and round. No scleral icterus. No injection or drainage ENT: No nasal bleeding or discharge. Mucous membranes pink and moist CARDIOVASCULAR: Regular rate and rhythm. No murmurs RESPIRATORY: No accessory muscle use. Clear to auscultation. Breath sounds equal bilaterally GASTROINTESTINAL: Abdomen soft, non-tender, nondistended Extremities: No clubbing, cyanosis, or edema. No obvious deformities MUSCULOSKELETAL: grossly intact ROM with 5/5 strength in upper and lower extremities proximally NEUROLOGICAL: Awake and alert. No obvious cranial nerve deficits. No facial droop nor slurred speech noted PSYCHIATRIC: Appropriate mood and affect; insight and judgment normal Results - Labs CBC & Chem 7: 05/08/18 06:22 05/08/18 06:22 Laboratory Results - last 24 hr 05/07/18 05/07/18 05/08/18 12:30 14:37 06:22 WBC RBC Hgb Hct MCV MCH MCHC RDW Plt Count MPV Neut % (Auto) Lymph % (Auto) [place] % (Auto) Eos % (Auto) Baso % (Auto) Neut # (Auto) Lymph # (Auto) [place] # (Auto) Eos # (Auto) Baso # (Auto) WBC Differential Differential Comment Sodium 141 143 Potassium 3.3 L D 3.8 Chloride 108 H D 112 H Carbon Dioxide 23.3 23.5 Anion Gap 10 8 BUN 35 H 25 H Creatinine 3.10 H 1.29 Estimated GFR 23 L 65 L Random Glucose 137 H 144 H Calcium 7.5 L D 7.7 L Total Creatine Kinase Urine Opiates Screen Neg Ur Barbiturates Screen Neg Ur Amphetamines Screen Pos H U Benzodiazepines Scrn Neg Urine Cocaine Screen Pos H U Cannabinoids Screen Neg 05/08/18 05/08/18 06:22 06:22 WBC 8.4 D RBC 4.47 L Hgb 14.1 D Hct 41.0 MCV 91.8 MCH 31.5 MCHC 34.3 RDW 13.4 Plt Count 216 D MPV 8.5 Neut % (Auto) 69.9 Lymph % (Auto) 20.1 [place] % (Auto) 7.9 Eos % (Auto) 1.7 Baso % (Auto) 0.4 Neut # (Auto) 5.9 Lymph # (Auto) 1.7 [place] # (Auto) 0.7 Eos # (Auto) 0.1 Baso # (Auto) 0.0 WBC Differential . Differential Comment Auto diff final Sodium Potassium Chloride Carbon Dioxide Anion Gap BUN Creatinine Estimated GFR Random Glucose Calcium Total Creatine Kinase 633 H Urine Opiates Screen Ur Barbiturates Screen Ur Amphetamines Screen U Benzodiazepines Scrn Urine Cocaine Screen U Cannabinoids Screen Assessment and Plan - Plan 33 -year-old male being admitted for acute renal failure secondary to dehydration Acute renal failure/Dehydration/Mild rhabdomyolysis Status post aggressive hydration. Renal function normalized. CPK mildly elevated. -encourage PO fluid intake. -continue IVFs for now. -outpt follow-up with PCP. UTI UA indicative of infection. No culture was obtained. -repeat UA and discharge on antibiotics if positive. Leukocytosis Stress reaction. -resolved. PPx: Ambulation Discharge Planning: D/c with or without antibiotics, pending repeat UA results
[2018-05-08 10:05] LABS: CKMB Percent 1.1 % (0.0-4.0)
[2018-05-08 10:35] LABS: Bilirubin,Urine Negative (Negative); Clarity,Urine Clear (Clear); Color,Urine Yellow (Yellw/Straw); Glucose,Urine (UA) Negative (Negative); Leukocyte Esterase,Urine Negative (Negative); Nitrite,Urine Negative (Negative); Specific Gravity,Urine 1.017 (1.002-1.035)
[2018-05-08 12:13] VITALS: BP 125/72; PULSE 82; TEMP 97.6; O2SAT 97
== END 2018-05-08 14:00 | disposition left against medical advice (07) ==
LOC: NEPC 05:44 → NEDA 09:30 → H7ONC 12:53
PROVIDERS: ADMIT Hospitalist; ATTEND Hospitalist